=== PATIENT | male | born 1935 | race Caucasian/White ===

== ENCOUNTER → 2023-09-07 08:24 | Outpatient (REF) | payer MEDICARE, SELFPAY | LOC: RAD 08:24 | PROVIDERS: ATTENDING PHYSICIAN Surgery Vascular Surgery; OTHER PHYSICIAN Internal Medicine Cardiovascular Disease; REFERRING PHYSICIAN Internal Medicine Cardiovascular Disease | DX: I71.40 Abdominal aortic aneurysm, without rupture, unspecified (principal); I72.4 Aneurysm of artery of lower extremity; I65.22 Occlusion and stenosis of left carotid artery | CPT/HCPCS: 76770; 93880; 93922; 93925 ==

== ENCOUNTER → 2023-12-07 12:22 | Outpatient (REF) | payer MEDICARE, SELFPAY | LOC: RCS 12:22 | PROVIDERS: ATTENDING PHYSICIAN Internal Medicine Cardiovascular Disease | DX: I35.0 Nonrheumatic aortic (valve) stenosis (principal); I25.10 Atherosclerotic heart disease of native coronary artery without angina pectoris; I51.7 Cardiomegaly; Z95.3 Presence of xenogenic heart valve | CPT/HCPCS: 93306 ==

== ENCOUNTER → 2024-04-11 10:46 | Outpatient (REF) | payer MEDICARE, SELFPAY | LOC: DHVS 10:46 | PROVIDERS: ATTENDING PHYSICIAN Surgery Vascular Surgery | DX: I65.22 Occlusion and stenosis of left carotid artery (principal) | CPT/HCPCS: 76770; 93880; 93922; 93925 ==

== ENCOUNTER → 2025-06-02 10:16 | Outpatient (REF) | payer MEDICARE, SELFPAY | LOC: RCS 10:16 | PROVIDERS: ATTENDING PHYSICIAN Internal Medicine Cardiovascular Disease; REFERRING PHYSICIAN Surgery Vascular Surgery | DX: Z95.2 Presence of prosthetic heart valve (principal); I71.40 Abdominal aortic aneurysm, without rupture, unspecified; I65.22 Occlusion and stenosis of left carotid artery | CPT/HCPCS: 76770; 93306; 93880; 93922; 93925 ==